=== PATIENT | female | born 1990 | race Caucasian/White ===

== ENCOUNTER → 2017-06-05 | Outpatient (CLI) | payer OTHER | LOC: OD 16:52 | PROVIDERS: ATTEND Obstetrics & Gynecology | DX: O02.1 Missed abortion (principal) | CPT/HCPCS: 36415; 84702 ==

== ENCOUNTER 2017-06-09 10:38 | Emergency (ER) | payer OTHER ==
[2017-06-09 10:43] VITALS: BP 106/61
--- NOTE | 2017-06-09 11:03 | ER Document Report ---
ED General - General Chief Complaint: Hand Pain Stated Complaint: RIGHT HAND INJURY Time Seen by Provider: 06/09/17 11:02 Mode of Arrival: Ambulatory Information source: Patient Notes: 27-year-old female presents with complaints of right hand pain fifth digit after punching a door at 430 this morning. TRAVEL OUTSIDE OF THE [place] IN LAST 30 DAYS: No - HPI Onset: This morning Onset/Duration: Sudden Quality of pain: Achy Severity: Mild Pain Level: 1 Associated symptoms: Body/muscle aches Exacerbated by: Movement Relieved by: Denies Similar symptoms previously: No Recently seen / treated by doctor: No - Related Data Allergies/Adverse Reactions: No Known Allergies Allergy (Unverified 06/09/17 10:42) Past Medical History - Social History Smoking Status: Never Smoker Cigarette use (# per day): No Chew tobacco use (# tins/day): No Smoking Education Provided: No Frequency of alcohol use: None Drug Abuse: None Family History: Reviewed & Not Pertinent Renal/ Medical History: Denies: Hx Peritoneal Dialysis Past Surgical History: Reports: Hx Breast Surgery - Lumpectomy right breast - Immunizations Hx Diphtheria, Pertussis, Tetanus Vaccination: Yes Review of Systems - Review of Systems Notes: REVIEW OF SYSTEMS: CONSTITUTIONAL : Denies fever, chills, or sweats. Denies recent illness. EENT: Denies eye, ear, throat, or mouth pain or symptoms. Denies nasal or sinus congestion or discharge. Denies throat, tongue, or mouth swelling or difficulty swallowing. CARDIOVASCULAR: Denies chest pain. Denies palpitations or racing or irregular heart beat. Denies ankle edema. RESPIRATORY: Denies cough, cold, or chest congestion. Denies shortness of breath, difficulty breathing, or wheezing. GASTROINTESTINAL: Denies abdominal pain or distention. Denies nausea, vomiting , or diarrhea. Denies blood in vomitus, stools, or per rectum. Denies black, tarry stools. Denies constipation. GENITOURINARY: Denies difficulty urinating, painful urination, burning, frequency, blood in urine, or discharge. FEMALE GENITOURINARY: Denies vaginal bleeding, heavy or abnormal periods, irregular periods. Denies vaginal discharge or odor. MUSCULOSKELETAL: Admits to hand pain SKIN: Denies rash, lesions or sores. HEMATOLOGIC : Denies easy bruising or bleeding. LYMPHATIC: Denies swollen, enlarged glands. NEUROLOGICAL: Denies confusion or altered mental status. Denies passing out or loss of consciousness. Denies dizziness or lightheadedness. Denies headache. Denies weakness or paralysis or loss of use of either side. Denies problems with gait or speech. Denies sensory loss, numbness, or tingling. Denies seizures. PSYCHIATRIC: Denies anxiety or stress. Denies depression, suicidal ideation, or homicidal ideation. ALL OTHER SYSTEMS REVIEWED AND NEGATIVE. PHYSICAL EXAMINATION: GENERAL: Well-appearing, well-nourished and in no acute distress. HEAD: Atraumatic, normocephalic. EYES: Pupils equal round and reactive to light, extraocular movements intact, conjunctiva are normal. ENT: Nares patent, oropharynx clear without exudates. Moist mucous membranes. NECK: Normal range of motion, supple without lymphadenopathy LUNGS: Breath sounds clear to auscultation bilaterally and equal. No wheezes rales or rhonchi. HEART: Regular rate and rhythm without murmurs ABDOMEN: Soft, nontender, nondistended abdomen. No guarding, no rebound. No masses appreciated. Female : deferred Musculoskeletal: Ecchymosis tenderness at the base of the fifth metacarpal NEUROLOGICAL: Cranial nerves grossly intact. Normal speech, normal gait. Normal sensory, motor exams PSYCH: Normal mood, normal affect. SKIN: Warm, Dry, normal turgor, no rashes or lesions noted. Dictation was performed using [employer] voice recognition software Physical Exam - Vital signs Vitals: Temp Pulse Resp BP Pulse Ox 97.9 F 95 16 106/61 99 06/09/17 10:41 06/09/17 10:41 06/09/17 10:41 06/09/17 10:41 06/09/17 10:41 Course - Re-evaluation Re-evalutation: 06/09/17 11:03 Patient taken immediately to x-ray 06/09/17 11:48 X-ray was reviewed by myself and I spoke with the radiologist, we do not believe the patient has a fracture at this time, the initial image was a bit concerning but is difficult to see in the oblique view. I will splint her nonetheless for comfort at this time and have her follow-up with orthopedic physician After performing a Medical Screening Examination, I estimate there is LOW risk for INTRACRANIAL HEMORRHAGE, UNSTABLE SPINE FRACTURE, CENTRAL CORD SYNDROME, CAUDA EQUINA, THORACIC AORTIC DISSECTION, PNEUMOTHORAX, PERFORATED BOWEL, RUPTURED ABDOMINAL AORTIC ANEURYSM, ACUTE TENDON RUPTURE, COMPARTMENT SYNDROME, or OPEN FRACTURE, thus I consider the discharge disposition reasonable. Also, there is no evidence or peritonitis, sepsis, or toxicity. I have reevaluated this patient multiple times and no significant life threatening changes are noted. The patient and I have discussed the diagnosis and risks, and we agree with discharging home to follow-up with their primary doctor with the understanding that symptoms and presentations can change. We also discussed returning to the Emergency Department immediately if new or worsening symptoms occur. We have discussed the symptoms which are most concerning (e.g., bloody stool, fever, changing or worsening pain, vomiting) that necessitate immediate return. - Vital Signs Vital signs: Temp Pulse Resp BP Pulse Ox 97.9 F 95 16 106/61 99 06/09/17 10:41 06/09/17 10:41 06/09/17 10:41 06/09/17 10:41 06/09/17 10:41 - Diagnostic Test Radiology reviewed: Image reviewed, Reports reviewed - no obvious fracture Procedures - Immobilization Right Hand Time completed: 15:11 Pre-Proc Neuro Vasc Exam: Normal Immobilizer type: Ulnar Performed by: PCT Post-Proc Neuro Vasc Exam: Normal Alignment checked and good: Yes Discharge - Discharge Clinical Impression: Hand injury Qualifiers: Encounter type: initial encounter Laterality: right Qualified Code(s): S69.91XA - Unspecified injury of right wrist, hand and finger(s), initial encounter Condition: Stable Disposition: HOME, SELF-CARE Instructions: Fractured Fifth Metacarpal ([facility]) Prescriptions: Hydrocodone/Acetaminophen [[place] 5-325 mg Tablet] 1 tab PO Q6 #10 tablet Referrals: NIKHIL JACKSON DO [ACTIVE STAFF] - Follow up in 1 week
[2017-06-09] MEDS ORDERED: HYDROCODONE/ACETAMINOPHEN 5-325 MG TABLET PO ONE (11:21)
--- NOTE | 2017-06-09 11:38 | RADIOLOGY REPORT (SQ) ---
EXAM DESCRIPTION: HAND RIGHT 3 VIEWS COMPLETED DATE/TIME: 06/09/2017 11:24 am REASON FOR STUDY: pain COMPARISON: None. EXAM PARAMETERS: NUMBER OF VIEWS: Three views. TECHNIQUE: AP, lateral and oblique radiographic images acquired of the right hand. LIMITATIONS: None. FINDINGS: MINERALIZATION: Normal. BONES: No acute fracture or dislocation. No worrisome bone lesions. JOINTS: No effusions. SOFT TISSUES: No soft tissue swelling. No foreign body. OTHER: No other significant finding. IMPRESSION: NEGATIVE STUDY OF THE RIGHT HAND. NO RADIOGRAPHIC EVIDENCE OF ACUTE INJURY. TECHNICAL DOCUMENTATION: JOB ID: [id number] [employer]- All Rights Reserved
== END 2017-06-09 12:12 | disposition home or self-care (01) ==
LOC: ER 10:38
PROC: 2W3CX1Z Immobilization of Right Lower Arm using Splint (ICD-10-PCS; principal; 2017-06-09)
DX: S69.91XA Unspecified injury of right wrist, hand and finger(s), initial encounter (principal); M79.641 Pain in right hand; X58.XXXA Exposure to other specified factors, initial encounter
CPT/HCPCS: 99283

== ENCOUNTER 2017-06-21 17:02 | Emergency (ER) | payer OTHER ==
[2017-06-21] MEDS ORDERED: NORMAL SALINE 1000 ML 1,000 ML IV PRN ×2 (17:19→19:03)
[2017-06-21] MEDS ORDERED: MORPHINE SULFATE 10 MG/ML INJ IV ONE (17:28)
--- NOTE | 2017-06-21 17:29 | ER Document Report ---
ED GI/ - General Chief Complaint: Vag Bleeding, +preg <12wks Stated Complaint: VAGINAL BLEEDING Time Seen by Provider: 06/21/17 17:18 Mode of Arrival: Ambulatory Information source: Patient TRAVEL OUTSIDE OF THE [place] IN LAST 30 DAYS: No - HPI Patient complains to provider of: Pelvic pain, , Vaginal bleeding - With tissue passage Onset: Just prior to arrival Timing/Duration: Gradual Quality of pain: Achy, Cramping Severity at maximum: Moderate Severity in ED: Moderate Pain Level: 3 Location: Pelvis Vaginal bleeding (Compared to normal period): Heavier, Passing clots, Passing tissue Menstrual period history: Associated symptoms: Lightheaded Exacerbated by: Denies Relieved by: Denies Similar symptoms previously: Yes Recently seen / treated by doctor: Yes Notes: 06/21/17 17:28 Patient is a 27-year-old female who is G3 with 2 previous miscarriages, one requiring a D&C, who presents to the emergency room today complaining of vaginal bleeding with passage of large tissue mass consistent with likely miscarriage, she reports that she was recently seen by [facility] [employer], has had 3 separate ultrasounds during the course of this and was told on her most recent one 2 weeks ago that there was no heartbeat and she would likely have a miscarriage, she reports that over the past week she has developed an increased cramping with bleeding, also lightheadedness causing her to nearly passed out twice yesterday, today she passed a large tissue mass resembling a 6-8 week fetus - Related Data Allergies/Adverse Reactions: No Known Allergies Allergy (Unverified 06/09/17 10:42) Past Medical History - General Information source: Patient - Social History Smoking Status: Never Smoker Family History: Reviewed & Not Pertinent Patient has suicidal ideation: No Patient has homicidal ideation: No Renal/ Medical History: Denies: Hx Peritoneal Dialysis Past Surgical History: Reports: Hx Breast Surgery - Lumpectomy right breast - Immunizations Hx Diphtheria, Pertussis, Tetanus Vaccination: Yes Review of Systems - Review of Systems Constitutional: No symptoms reported EENT: No symptoms reported Cardiovascular: No symptoms reported Respiratory: No symptoms reported Gastrointestinal: No symptoms reported Genitourinary: No symptoms reported Female Genitourinary: See HPI Musculoskeletal: No symptoms reported Skin: No symptoms reported Hematologic/Lymphatic: No symptoms reported Neurological/Psychological: No symptoms reported -: Yes All other systems reviewed and negative Physical Exam - Vital signs Vitals: Temp Pulse Resp BP Pulse Ox 98.4 F 113 H 20 115/62 100 06/21/17 17:10 06/21/17 17:10 06/21/17 17:10 06/21/17 17:10 06/21/17 17:10 Interpretation: Normal - General General appearance: Appears well, Alert - HEENT Head: Normocephalic, Atraumatic Eyes: Normal Pupils: PERRL - Respiratory Respiratory status: No respiratory distress Chest status: Nontender Breath sounds: Normal Chest palpation: Normal - Cardiovascular Rhythm: Regular Heart sounds: Normal auscultation Murmur: No - Abdominal Inspection: Normal Distension: No distension Bowel sounds: Normal Tenderness: Nontender Organomegaly: No organomegaly - Back Back: Normal, Nontender - Extremities General upper extremity: Normal inspection, Nontender, Normal color, Normal ROM , Normal temperature General lower extremity: Normal inspection, Nontender, Normal color, Normal ROM , Normal temperature, Normal weight bearing. No: Gil's sign - Neurological Neuro grossly intact: Yes Cognition: Normal Orientation: AAOx4 [place] Coma Scale Eye Opening: Spontaneous [place] Coma Scale Verbal: Oriented [place] Coma Scale Motor: Obeys Commands [place] Coma Scale Total: 15 Speech: Normal Motor strength normal: LUE, RUE, LLE, RLE Sensory: Normal - Psychological Associated symptoms: Normal affect, Normal mood - Skin Skin Temperature: Warm Skin Moisture: Dry Skin Color: Normal Course - Re-evaluation Re-evalutation: 06/21/17 19:11 Patient was discussed with on-call [facility] [employer], Dr. Henry, I discussed patient's physical exam findings, lab findings and ultrasound findings, she recommends patient be discharged home with instructions that heavy bleeding will likely occur for the next few days with some cramping, recommended I put patient on doxycycline prophylactically and advised her to follow-up in the [facility] office either tomorrow or Sunday, this plan was discussed with patient who acknowledges understanding and agreement 06/21/17 19:12 - Vital Signs Vital signs: Temp Pulse Resp BP Pulse Ox 98.4 F 113 H 20 115/62 100 06/21/17 17:10 06/21/17 17:10 06/21/17 17:10 06/21/17 17:10 06/21/17 17:10 - Laboratory Result Diagrams: 06/21/17 17:38 06/21/17 17:38 Laboratory results interpreted by me: 06/21/17 06/21/17 17:38 17:38 WBC 11.5 H RBC 3.39 L Hgb 10.6 L Hct 29.9 L Beta HCG, Quant 3093.60 H - Diagnostic Test Radiology reviewed: Image reviewed, Reports reviewed Discharge - Discharge Clinical Impression: Complete miscarriage Condition: Stable Disposition: HOME, SELF-CARE Instructions: Miscarriage ([facility]), Prophylactic Antibiotic ([facility]) Additional Instructions: Follow-up with your [facility] [employer] in the next 1-2 days. Return to the emergency room immediately if symptoms worsen or any additional concerns. Prescriptions: Doxycycline Hyclate 100 mg PO BID #14 tablet Hydrocodone/Acetaminophen [Hydrocodon-Acetaminophen 5-325] 1 each PO Q6 #20 tablet
[2017-06-21 17:53] LABS: ABSOLUTE BASOPHILS # (AUTO) 0.1 10^3/uL (0.0-0.2); ABSOLUTE EOSINOPHILS # (AUTO) 0.2 10^3/uL (0.0-0.6); ABSOLUTE LYMPHOCYTES (AUTO) 4.4 10^3/uL (0.5-4.7); ABSOLUTE MONOCYTES (AUTO) 0.8 10^3/uL (0.1-1.4); BASOPHILS % (AUTO) 0.6 % (0-2); HEMATOCRIT 29.9 % (36.0-47.0); HEMOGLOBIN 10.6 g/dL (12.0-15.5); HGB HCT DIFFERENCE 1.9; LYMPHOCYTES % (AUTO) 38.4 % (13-45); MEAN CORPUSCULAR HEMOGLOBIN 31.3 pg (27.0-33.4); MEAN CORPUSCULAR HGB CONC 35.4 g/dL (32.0-36.0); MEAN CORPUSCULAR VOLUME 88 fl (80-97); MONOCYTES % (AUTO) 6.6 % (3-13); RED BLOOD COUNT 3.39 10^6/uL (3.72-5.28); RED CELL DISTRIBUTION WIDTH 12.9 % (11.5-14.0); SEGMENTED NEUTROPHILS % (AUTO) 52.4 % (42-78); WHITE BLOOD COUNT 11.5 10^3/uL (4.0-10.5)
[2017-06-21] MEDS ORDERED: ONDANSETRON HCL INJ/PF 4 MG/2 ML SDV IV ONE (17:56)
[2017-06-21 18:14] LABS: ALANINE AMINOTRANSFERASE 29 U/L (9-52); ALBUMIN 4.3 g/dL (3.5-5.0); ALKALINE PHOSPHATASE 88 U/L (38-126); ANION GAP 13 (5-19); ASPARTATE AMINO TRANSFERASE 18 U/L (14-36); BILIRUBIN,DIRECT 0.3 mg/dL (0.0-0.4); BILIRUBIN,TOTAL 0.3 mg/dL (0.2-1.3); BLOOD UREA NITROGEN 7 mg/dL (7-20); CALCIUM 9.3 mg/dL (8.4-10.2); CARBON DIOXIDE 24 mmol/L (22-30); CHLORIDE 106 mmol/L (98-107); CREATININE RESULT 0.66 mg/dL (0.52-1.25); GLUCOSE 95 mg/dL (75-110); POTASSIUM 3.8 mmol/L (3.6-5.0); SODIUM 142.7 mmol/L (137-145); TOTAL PROTEIN 7.6 g/dL (6.3-8.2)
[2017-06-21 18:28] LABS: APPEARANCE,URINE CLEAR; BILIRUBIN,URINE NEGATIVE (NEGATIVE); GLUCOSE, URINE NEGATIVE (NEGATIVE); KETONES,URINE NEGATIVE (NEGATIVE); LEUKOCYTE ESTERASE,URINE NEGATIVE (NEGATIVE); NITRITE,URINE NEGATIVE (NEGATIVE); PROTEIN,URINE NEGATIVE (NEGATIVE); URINE SPECIFIC GRAVITY 1.008; UROBILINOGEN,URINE NEGATIVE mg/dL (<2.0)
--- NOTE | 2017-06-21 18:58 | RADIOLOGY REPORT (SQ) ---
EXAM DESCRIPTION: U/S OB TRANSVAG W/DOPPLER COMPLETED DATE/TIME: 06/21/2017 6:43 pm REASON FOR STUDY: vaginal bldg, tissue passage, COMPARISON: None. TECHNIQUE: Transvaginal static and realtime grayscale images acquired of the pelvis. Additional sandy cted spectral and color Doppler images recorded. All images stored on PACs. BHC,093. LIMITATIONS: None. FINDINGS: UTERUS: No visualized intrauterine . Heterogenous tissue in the endometrial cavi ty extending to the cervical canal. RIGHT ADNEXA: Normal ovary with normal vascular flow. No adnexal free fluid. No adnexal masses. LEFT ADNEXA: Normal ovary with normal vascular flow. No adnexal free fluid. No adnexal masses. FREE FLUID: None. OTHER: No other significant finding. IMPRESSION: NO VISUALIZED INTRA- OR EXTRAUTERINE . THERE IS A HETEROGENOUS MATERIAL IN THE ENDOMETRIAL CAVITY AND CERVICAL CANAL CONSISTENT WITH ABORTIO N IN PROGRESS. TECHNICAL DOCUMENTATION: JOB ID: [id number] [employer]- All Rights Reserved
[2017-06-21] MEDS ORDERED: METOCLOPRAMIDE HCL ORAL SOLN 10 MG/10 ML UDCUP PO ONE (19:03)
[2017-06-21] MEDS ORDERED: ONDANSETRON ODT 4 MG TAB (6 TAB/DSPK) PO PRN (19:18)
[2017-06-21 21:00] VITALS: BP 96/54
== END 2017-06-21 20:54 | disposition home or self-care (01) ==
LOC: ER 17:02
DX: O03.9 Complete or unspecified spontaneous abortion without complication (principal); R42 Dizziness and giddiness
CPT/HCPCS: 99284; 96361; 96374; 96375; 86900; 86901; 36415; 84702; 85025; 80053; 81001; 88305 ×2; 76817; 93976; J2270; J2405; J7030

== ENCOUNTER 2017-06-29 07:49 | Day surgery (SDC) | payer OTHER ==
[2017-06-29] MEDS ORDERED: DOXYCYCLINE HYCLATE 100 MG in DEXTROSE 5%-WATER 250 ML IV PRN (08:01)
[2017-06-29] MEDS ORDERED: KETOROLAC TROMETHAMINE 60 MG/2 ML SDV ONE (08:15)
[2017-06-29] MEDS ORDERED: ONDANSETRON HCL INJ/PF 4 MG/2 ML SDV ONE (08:15)
[2017-06-29] MEDS ORDERED: LIDOCAINE 2% INJ-PF (20 MG/ML) 10 ML AMPUL ONE (08:15)
[2017-06-29] MEDS ORDERED: DEXAMETHASONE SOD PHOSPHATE INJ 4 MG/1 ML VIAL ONE (08:15)
[2017-06-29 08:26] LABS: HEMATOCRIT 28.5 % (36.0-47.0); HGB HCT DIFFERENCE 1.5; MEAN CORPUSCULAR HEMOGLOBIN 31.7 pg (27.0-33.4); MEAN CORPUSCULAR HGB CONC 35.1 g/dL (32.0-36.0); MEAN CORPUSCULAR VOLUME 91 fl (80-97); RED BLOOD COUNT 3.15 10^6/uL (3.72-5.28); RED CELL DISTRIBUTION WIDTH 13.5 % (11.5-14.0)
[2017-06-29] MEDS ORDERED: METHYLERGONOVINE MALEATE INJ/PF 0.2 MG/1 ML AMPULE ONE ×2 (08:32→09:04)
[2017-06-29 08:44] LABS: APPEARANCE,URINE CLEAR; BILIRUBIN,URINE NEGATIVE (NEGATIVE); GLUCOSE, URINE NEGATIVE (NEGATIVE); KETONES,URINE NEGATIVE (NEGATIVE); LEUKOCYTE ESTERASE,URINE NEGATIVE (NEGATIVE); NITRITE,URINE NEGATIVE (NEGATIVE); PROTEIN,URINE NEGATIVE (NEGATIVE); URINE SPECIFIC GRAVITY 1.006; UROBILINOGEN,URINE NEGATIVE mg/dL (<2.0)
[2017-06-29] MEDS ORDERED: LIDOCAINE 1%/EPINEPHRINE INJ 20 ML VIAL ONE (09:04)
[2017-06-29] MEDS ORDERED: MIDAZOLAM 2 MG/2 ML INJ ONE (09:13)
[2017-06-29] MEDS ORDERED: FENTANYL CITRATE INJ/PF 100 MCG/2 ML AMPUL ONE ×2 (09:13→10:44)
[2017-06-29] MEDS ORDERED: PROPOFOL INJ 200 MG/20 ML VIAL IV ONE (09:14)
[2017-06-29] MEDS ORDERED: ACETAMINOPHEN 100 ML IV ONE (09:14)
[2017-06-29] MEDS ORDERED: MISOPROSTOL 0.2 MG TABLET ONE (09:37)
[2017-06-29] MEDS ORDERED: DIPHENHYDRAMINE HCL 50 MG/ML VIAL IV PRN (10:27)
[2017-06-29] MEDS ORDERED: FENTANYL CITRATE INJ/PF 100 MCG/2 ML AMPUL IV PRN ×3 (10:27)
[2017-06-29] MEDS ORDERED: MORPHINE SULFATE 10 MG/ML INJ IV PRN (10:27)
[2017-06-29] MEDS ORDERED: PROMETHAZINE HCL INJ 25 MG/1 ML VIAL IV PRN ×2 (10:27)
[2017-06-29] MEDS ORDERED: MEPERIDINE HCL/PF INJ 25 MG/1 ML DISP.SYRIN IV PRN (10:27)
[2017-06-29] MEDS ORDERED: OXYCODONE-ACETAMINOPHEN 5-325 MG TABLET PO PRN ×4 (10:27→10:48)
[2017-06-29] MEDS ORDERED: MEPERIDINE HCL/PF INJ 25 MG/1 ML DISP.SYRIN ONE (10:32)
[2017-06-29] MEDS ORDERED: HYDROMORPHONE HCL INJ/PF 2 MG/ML AMPULE IV PRN (10:45)
[2017-06-29] MEDS ORDERED: RINGERS SOLUTION,LACTATED 1,000 ML IV PRN (10:46)
[2017-06-29] MEDS ORDERED: IBUPROFEN 800 MG TABLET PO PRN (10:47)
[2017-07-02 05:54] VITALS: BP 111/74
--- NOTE | 2017-07-17 07:09 | Operative Report ---
Operative Report DATE OF SURGERY: 06/29/17 Operative Report: EUA, Paracervical Block, D&C PREOPERATIVE DIAGNOSIS: Incomplete AB POSTOPERATIVE DIAGNOSIS: ARDEN OPERATION: EUA, Paracervical Block, Suction D&C SURGEON: LE ABDULLAHI ANESTHESIA: GA TISSUE REMOVED OR ALTERED: products of conception COMPLICATIONS: None ESTIMATED BLOOD LOSS: less than 10ml INTRAOPERATIVE FINDINGS: small 8wks AV uterus, moderate products of conception PROCEDURE: Anesthesia: [Lamar Guzman MD, Rolando Guthrie CRNA] Anesthesia: GA IVF: [1000ml] UOP: [400ml] Indications: [27yo with retained products of conception on ultrasound after spontaneous miscarriage last week. The risks, benefits, alternatives were reviewed with the patient and she desires to proceed with planned procedure.] Procedure: The patient was taken to the Operating Room where general anesthesia was obtained without difficulty. She was prepped and draped in the normal sterile fashion in the dorsal lithotomy position. Exam under anesthesia was performed and noted above. A speculum was placed in the vagina. The anterior cervix was grasped with a single-tooth tenaculum and the uterus sounded to [9cm ] after paracervical block was performed with 8 mL of 1% lidocaine with epinephrine. The cervix was noted to be closed at the beginning of the procedure. Sequential dilators were then used to dilate the cervix to accommodate the the 8 mm suction curet curved. The 8 mm curved suction curet was gently advanced in the usual fashion and good return of tissue. The suction device was then activated and the curet rotated to clear the uterus of the products of conception. A sharp curettage was then performed. The suction device was then gently reintroduced and activated and the curet rotated to clear the uterus of conception which was loosened with recent sharp curettage. The sharp curettage was then performed again until a gritty texture was noted and the cavity was felt to be empty of further tissue. At this time there was minimal bleeding noted from the cervix. All instruments were removed from the patient's cervix and vagina. Silver nitrate was applied to the tenaculum site for hemostasis. Sponge lap needle and instrument counts are correct 2. Doxycycline 100 mg IV was given perioperatively. The patient tolerated the procedure well and was taken to the recovery area awake and in stable condition. The patient was discharged home with pain medications as well as by mouth Methergine.
== END 2017-06-29 13:00 | disposition home or self-care (01) ==
LOC: OROUT 07:49
PROVIDERS: ATTEND Student in an Organized Health Care Education/Training Program
PROC: 10D17Z9 Manual Extraction of Products of Conception, Retained, Via Natural or Artificial Opening (ICD-10-PCS; principal; 2017-06-29 09:45)
DX: O02.1 Missed abortion (principal); F17.210 Nicotine dependence, cigarettes, uncomplicated
CPT/HCPCS: 36415; 85027; 81001; 88305 ×2; 59820; J2250; J1100; J3490 ×3; J1885; J3010; J2175; J1170; J2405; J7060; J2704; J0131; 1965; J2210

== ENCOUNTER 2017-08-21 22:46 | Emergency (ER) | payer OTHER ==
--- NOTE | 2017-08-21 23:58 | ER Document Report ---
ED Hand/Wrist Injury - General Chief Complaint: Finger Injury Stated Complaint: RIGHT HAND INJURY Time Seen by Provider: 08/21/17 23:57 Mode of Arrival: Ambulatory Information source: Patient Notes: Patient is a 27-year-old female comes emergency room complaining of right hand pain. Patient has a history of a fracture several months ago of the right distal metacarpal on the fifth digit. She sees orthopedic and it has been getting better. She states that today she was walking at all with leash dog bolted pulled on her hand and the leash patient fell forward and she landed on her right hand with under her chest causing to be sandwich between her chest and the ground. Patient states that is very painful and is afraid she fractured it again. TRAVEL OUTSIDE OF THE [place] IN LAST 30 DAYS: No - HPI Patient complains to provider of: Hand pain Injury to: Hand, Small finger Onset: This afternoon Where: Home Timing: Constant Quality of pain: Sharp, Stabbing Severity: Moderate Pain Level: 3 Context: Blow, Crush, Swelling - Related Data Allergies/Adverse Reactions: No Known Allergies Allergy (Unverified 06/09/17 10:42) Past Medical History - General Information source: Patient - Social History Smoking Status: Never Smoker Cigarette use (# per day): No Chew tobacco use (# tins/day): No Smoking Education Provided: No Frequency of alcohol use: Occasional Drug Abuse: None Family History: Reviewed & Not Pertinent Patient has suicidal ideation: No Patient has homicidal ideation: No - Past Medical History Cardiac Medical History: Denies: Hx Coronary Artery Disease, Hx Heart Attack, Hx Hypertension Pulmonary Medical History: Denies: Hx Asthma, Hx Bronchitis, Hx COPD, Hx Pneumonia Neurological Medical History: Denies: Hx Cerebrovascular Accident, Hx Seizures Renal/ Medical History: Denies: Hx Peritoneal Dialysis Musculoskeltal Medical History: Denies Hx Arthritis Past Surgical History: Reports: Hx Breast Surgery - Lumpectomy right breast - Immunizations Hx Diphtheria, Pertussis, Tetanus Vaccination: - UNKNOWN Review of Systems - Review of Systems Constitutional: No symptoms reported EENT: No symptoms reported Cardiovascular: No symptoms reported Respiratory: No symptoms reported Gastrointestinal: No symptoms reported Genitourinary: No symptoms reported Female Genitourinary: No symptoms reported Musculoskeletal: See HPI, Joint pain, Joint swelling. denies: No symptoms reported, Back pain, Gout, Muscle pain, Muscle stiffness, Neck pain, Deformity, Leg swelling, Ankle swelling, Other Skin: No symptoms reported Hematologic/Lymphatic: No symptoms reported Neurological/Psychological: No symptoms reported -: Yes All other systems reviewed and negative Physical Exam - Vital signs Vitals: Temp Pulse Resp BP Pulse Ox 98.4 F 89 18 106/59 L 100 08/21/17 22:59 08/21/17 22:59 08/21/17 22:59 08/21/17 22:59 08/21/17 22:59 Interpretation: Normal - General General appearance: Alert, Other - Uncomfortable appearing - HEENT Head: Normocephalic, Atraumatic - Respiratory Respiratory status: No respiratory distress Chest status: Nontender Breath sounds: Normal. No: Decreased air movement, Nonproductive cough, Productive cough, Rales, Rhonchi, Stridor, Wheezing, Other - Cardiovascular Rhythm: Regular Heart sounds: Normal auscultation Murmur: No - Extremities General upper extremity: Tender. No: Normal inspection, Nontender, Edema, Normal color, Normal ROM, Normal strength, Normal temperature, Other General lower extremity: Normal inspection, Normal ROM Hand: Tender, Swelling, Other - Examination of patient's right hand shows there to be slight amount of swelling to the right dorsum of the little finger metacarpal area. There is no sign of abrasion or. No: Normal, Nontender, Abrasion, Deformity, Dislocation, Ecchymosis, Instability, Laceration, Nail injury, No evidence of human bite, No evidence of FB, Tendon deficit Hip: Normal - discoloration. Patient has decreased range of motion with flexion and extension of the little finger on the right hand she is good cap refill in the nail bed of the finger she has good pulses of the distal ulna and radius area. Patient has decreased strength against resistance in all planes with the little finger. Inspection of the outside of the hand does not show any abrasions or contusions that are noticeable. Moderate amount of tenderness at the distal right fifth metacarpal. Course - Vital Signs Vital signs: Temp Pulse Resp BP Pulse Ox 98.4 F 89 18 106/59 L 100 08/21/17 22:59 08/21/17 22:59 08/21/17 22:59 08/21/17 22:59 08/21/17 22:59 - Diagnostic Test Radiology reviewed: Reports reviewed - X-ray of the right hand shows no acute findings. Is evidence of an old fracture healed. - Transfer of Care Notes: 08/22/17 01:58 I have informed patient of the findings on the x-ray and have given her a copy of the report. There is no fracture there and therefore no real reason the splint on RN however patient does have a splint given to her by orthopedist but states that it is too painful to place on. We will place her in a Ortho-Glass cock-up splint just to stop the hand from being mobile. And she will follow-up with orthopedics sometime this week. She will continue to ice it down. We will try diclofenac as a anti-inflammatory to see if that will relieve her discomfort. Procedures - Immobilization Right Hand 5th digit Immobilizer type: Sugar tong, Other - A boxer splint is what we will use with Ortho-Glass. Performed by: PCT Post-Proc Neuro Vasc Exam: Normal Alignment checked and good: Yes Discharge - Discharge Clinical Impression: Strain of right little finger Contusion of hand, right Qualifiers: Encounter type: initial encounter Qualified Code(s): S60.221A - Contusion of right hand, initial encounter Condition: Good Disposition: HOME, SELF-CARE Instructions: Contusion ([facility]), Tendon Strain ([facility]) Additional Instructions: Use the splint for the next 2-3 days. Highly recommend since you are seen an orthopedist already follow-up with him sometime this week. Ice to the area 3 times a day. We will try you on diclofenac which is anti-inflammatory for the discomfort and pain. She have any concerns or problems return here for a recheck. Prescriptions: Diclofenac Potassium 50 mg PO BID #20 tablet
--- NOTE | 2017-08-22 01:27 | RADIOLOGY REPORT (SQ) ---
EXAM DESCRIPTION: HAND RIGHT 3 VIEWS CLINICAL HISTORY: 27 years, Female, pain COMPARISON: June 19, 2017 TECHNIQUE: Four images. LIMITATIONS: None. 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 Bones, joints, and soft tissues appear otherwise intact. IMPRESSION: No acute findings. 2011 [employer]- All Rights Reserved
[2017-08-22] MEDS ORDERED: KETOROLAC TROMETHAMINE 60 MG/2 ML SDV IM ONE (01:29)
[2017-08-22 02:20] VITALS: BP 106/69
== END 2017-08-22 02:21 | disposition home or self-care (01) ==
LOC: ER 22:46
DX: S66.911A Strain of unspecified muscle, fascia and tendon at wrist and hand level, right hand, initial encounter (principal); W19.XXXA Unspecified fall, initial encounter; Y93.K1 Activity, walking an animal; Y92.009 Unspecified place in unspecified non-institutional (private) residence as the place of occurrence of the external cause
CPT/HCPCS: 99283; 96372; 73130; 29125; J1885

== ENCOUNTER 2018-08-01 19:00 | Outpatient (CLI) | payer OTHER ==
[2018-08-01 20:33] LABS: APPEARANCE,URINE CLEAR; BILIRUBIN,URINE NEGATIVE (NEGATIVE); COLOR,URINE STRAW; GLUCOSE, URINE NEGATIVE (NEGATIVE); KETONES,URINE NEGATIVE (NEGATIVE); LEUKOCYTE ESTERASE,URINE NEGATIVE (NEGATIVE); NITRITE,URINE NEGATIVE (NEGATIVE); PROTEIN,URINE 100 mg/dL (NEGATIVE); URINE SPECIFIC GRAVITY 1.006; UROBILINOGEN,URINE NEGATIVE mg/dL (<2.0)
--- NOTE | 2018-08-01 20:39 | RADIOLOGY REPORT (SQ) ---
EXAM DESCRIPTION: U/S OB LIMITED COMPLETED DATE/TIME: 08/01/2018 8:24 pm REASON FOR STUDY: 33+6 rule out abruption COMPARISON: None. TECHNIQUE: Limited transabdominal grayscale ultrasound for evaluation of specific requested obstetri liliana parameters. LIMITATIONS: None. FINDINGS: CERVICAL LENGTH: 4.2 cm Closed. . FHR: 153 beats per minute. PRESENTATION: Cephalic. PLACENTA: Fundal. No abruption. ANATOMY: Not assessed OTHER: No other significant findings. IMPRESSION: LIMITED OBSTETRICAL ULTRASOUND WITH MEASURED PARAMETERS DELINEATED ABOVE. Trimester of : Third trimester - 28 weeks to delivery. TECHNICAL DOCUMENTATION: JOB ID: [id number] [employer]- All Rights Reserved Reading location - IP/workstation name: [email or web address]
[2018-08-01 20:53] LABS: INTERNATIONAL RATION (INR) 0.97; PROTHROMBIN TIME 13.3 SEC (11.4-15.4)
[2018-08-01 20:54] LABS: FIBRINOGEN 463 mg/dL (209-497); PARTIAL THROMBOPLASTIN TIME 25.1 SEC (23.5-35.8)
[2018-08-01] MEDS ORDERED: NALBUPHINE HCL INJ 10 MG/1 ML AMPULE IM ONE (20:56)
[2018-08-01] MEDS ORDERED: NALBUPHINE HCL INJ 10 MG/1 ML AMPULE ONE (21:00)
[2018-08-01 21:05] LABS: URINE AMPHETAMINES SCREEN NEGATIVE; URINE BARBITURATES SCREEN NEGATIVE; URINE BENZODIAZEPINES SCREEN NEGATIVE; URINE COCAINE SCREEN NEGATIVE; URINE MARIJUANA (THC) SCREEN NEGATIVE; URINE METHADONE SCREEN NEGATIVE; URINE PHENCYCLIDINE SCREEN NEGATIVE
--- NOTE | 2018-08-01 23:16 | Non Stress Test Report ---
Non Stress Test Datetime Report Generated by CPN: 08/01/2018 23:16 DEMOGRAPHIC Test Number: 1 INDICATION Indication for Study: Ordered by Provider MONITORING Monitor Explained: Monitor Explained; Test Explained; Patient Verbalized Understanding Time off Monitor: 08/01/2018 23:04 NST INTERVENTIONS NST Interventions: PO Hydration; IV Fluids; Reposition Patient Physician Notified NST: Dr. Younger BABY A: [id number] BABY A Movement : Present FHR Baseline : 130 Accelerations : 15X15 Variability : Moderate 6-25bpm NST Review: Meets Criteria for Reactive NST NST Review and Verified By : E. Jilek RN NST Results: Reactive NST REPORT Report Trigger: Send Report
[2018-08-01 23:43] LABS: FETAL RBC COUNT 3
[2018-08-02 03:23] LABS: KB INTERPRETATION POSITIVE (NEGATIVE)
== END 2018-08-01 23:15 | disposition home or self-care (01) ==
LOC: LC 19:00
PROVIDERS: ATTEND Obstetrics & Gynecology
DX: Z34.93 Encounter for supervision of normal pregnancy, unspecified, third trimester (principal)
CPT/HCPCS: 36415; 85384; 85610; 85730; 81001; 85460; 80307; 76815; J2300

== ENCOUNTER 2018-08-02 15:21 | Outpatient (CLI) | payer OTHER ==
--- NOTE | 2018-08-02 20:13 | Non Stress Test Report ---
Non Stress Test Datetime Report Generated by CPN: 08/02/2018 20:13 DEMOGRAPHIC EGA NST: 34.0 INDICATION Indication for Study: Ordered by Provider MONITORING Monitor Explained: Monitor Explained; Test Explained; Patient Verbalized Understanding Time on Monitor: 08/02/2018 15:32 Time off Monitor: 08/02/2018 19:47 NST Duration: 255 NST INTERVENTIONS Physician Notified NST: Carl BABY A: [id number] BABY A Movement : Present Contraction Frequency : irregular FHR Baseline : 140 Accelerations : 15X15 Decelerations : None Variability : Moderate 6-25bpm NST Review: Meets Criteria for Reactive NST NST Review and Verified By : JUAN Lane NST Results: Reactive NST REPORT Report Trigger: Send Report
== END 2018-08-02 19:51 | disposition home or self-care (01) ==
LOC: LC 15:21
PROVIDERS: ATTEND Obstetrics & Gynecology
PROC: 4A1HXCZ Monitoring of Products of Conception, Cardiac Rate, External Approach (ICD-10-PCS; principal; 2018-08-02)
DX: O47.03 False labor before 37 completed weeks of gestation, third trimester (principal); Z3A.34 34 weeks gestation of pregnancy
CPT/HCPCS: 59025

== ENCOUNTER 2018-09-08 11:59 | Inpatient (IN) | payer OTHER ==
[2018-09-08 12:22] LABS: APPEARANCE,URINE CLEAR; BILIRUBIN,URINE NEGATIVE (NEGATIVE); COLOR,URINE STRAW; GLUCOSE, URINE NEGATIVE (NEGATIVE); KETONES,URINE NEGATIVE (NEGATIVE); LEUKOCYTE ESTERASE,URINE NEGATIVE (NEGATIVE); NITRITE,URINE NEGATIVE (NEGATIVE); PROTEIN,URINE 100 mg/dL (NEGATIVE); URINE SPECIFIC GRAVITY 1.005; UROBILINOGEN,URINE NEGATIVE mg/dL (<2.0)
[2018-09-08 12:38] LABS: URINE AMPHETAMINES SCREEN NEGATIVE; URINE BARBITURATES SCREEN NEGATIVE; URINE BENZODIAZEPINES SCREEN NEGATIVE; URINE COCAINE SCREEN NEGATIVE; URINE MARIJUANA (THC) SCREEN NEGATIVE; URINE METHADONE SCREEN NEGATIVE; URINE PHENCYCLIDINE SCREEN NEGATIVE
[2018-09-08 13:49] LABS: UR PRO/CREAT RATIO RESULT 4.3 mg/mg (0.0-0.2); URINE PROTEIN 164.2 mg/dL (<12)
[2018-09-08 14:18] LABS: ALANINE AMINOTRANSFERASE 11 U/L (9-52); ALBUMIN 3.3 g/dL (3.5-5.0); ALKALINE PHOSPHATASE 249 U/L (38-126); ANION GAP 8 (5-19); ASPARTATE AMINO TRANSFERASE 21 U/L (14-36); BILIRUBIN,DIRECT 0.1 mg/dL (0.0-0.4); BILIRUBIN,TOTAL 0.4 mg/dL (0.2-1.3); BLOOD UREA NITROGEN 9 mg/dL (7-20); CALCIUM 9.1 mg/dL (8.4-10.2); CARBON DIOXIDE 21 mmol/L (22-30); CHLORIDE 106 mmol/L (98-107); GLUCOSE 93 mg/dL (75-110); POTASSIUM 4.1 mmol/L (3.6-5.0); SODIUM 134.8 mmol/L (137-145); TOTAL PROTEIN 6.7 g/dL (6.3-8.2); URIC ACID 5.6 mg/dL (2.5-6.2)
[2018-09-08 14:37] LABS: ABSOLUTE EOSINOPHILS # (AUTO) 0.1 10^3/uL (0.0-0.6); ABSOLUTE LYMPHOCYTES (AUTO) 2.1 10^3/uL (0.5-4.7); ABSOLUTE MONOCYTES (AUTO) 0.7 10^3/uL (0.1-1.4); ABSOLUTE NEUT (AUTO) 5.8 10^3/uL (1.7-8.2); BASOPHILS % (AUTO) 0.3 % (0-2); HEMATOCRIT 30.1 % (36.0-47.0); HEMOGLOBIN 9.9 g/dL (12.0-15.5); LYMPHOCYTES % (AUTO) 23.9 % (13-45); MEAN CORPUSCULAR HEMOGLOBIN 26.6 pg (27.0-33.4); MEAN CORPUSCULAR HGB CONC 32.8 g/dL (32.0-36.0); MEAN CORPUSCULAR VOLUME 81 fl (80-97); MONOCYTES % (AUTO) 7.6 % (3-13); PLATELET COUNT 155 10^3/uL (150-450); RED BLOOD COUNT 3.72 10^6/uL (3.72-5.28); SEGMENTED NEUTROPHILS % (AUTO) 67.2 % (42-78); TOTAL CELLS COUNTED % (AUTO) 100 %; WHITE BLOOD COUNT 8.7 10^3/uL (4.0-10.5)
--- NOTE | 2018-09-08 16:34 | Admission Physical ---
Datetime Report Generated by CPN: 09/08/2018 16:34 CURRENT ADMISSION Chief Complaint: Uterine Contractions Indication for Induction: Not Applicable Admit Impression : Term, Intrauterine Admit Plan: Admit to Unit ALLERGIES Medication Allergies: No Medication Allergies: No Known Allergies (08/02/2018) Latex: No Latex Allergies Food Allergies: N/A Environmental Allergies: N/A OBSTETRICAL HISTORY EDC: 09/13/2018 00:00 : 3 Para: 0 Term: 0 : 0 SAB: 2 IAB: 0 Ectopic: 0 Livin Cesareans: 0 VBACs: 0 Multiple Births: 0 Gestational Diabetes: No Rh Sensitization: No Incompetent Cervix: No ALEKS: No Infertility: No ART Treatment: No Uterine Anomaly: No IUGR: No Hx Previous C/S: No Macrosomia: No Hx Loss/Stillborn: No PIH: No Hx : No Placenta Previa/Abruption: No Depression/PP Depression: Yes PTL/PROM: No Post Hemorrhage: No Current Procedures: Ultrasound Obstetrical History Comments: G1 - 2010, SAB, 11 weeks, D_C G2 - 2016, SAB, 6 weeks G3 - Current SEE RECORDS Alcohol: No Marijuana : No Cocaine: No Other Illicit Drugs: No Cigarettes: Former Smoker. 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 Heart Disease: No Hosp/Surgery: Yes Autoimmune Disorder: No Anesthetic Complications: No Kidney Disease: No Abnormal Pap Smear: No Neuro/Epilepsy: No Psychiatric Disorders: Yes Other Medical Diseases: No Hepatitis/Liver Disease: No Significant Family History: No Varicosities/Phlebitis: No Trauma/Violence : No Thyroid Dysfunction: No Medical History Comments: Depression, Anxiety, D_C in 2010, right knee surgery 2004, cyst removed in jaw 2002 and 2003, lump removed from right breast 2015 INFECTIOUS HISTORY Gonorrhea: No Genital Herpes: No Chlamydia: No Tuberculosis: No Syphilis: No Hepatitis: No HIV/AIDS Exposure: No Rash or Viral Illness: No HPV: No PHYSICAL EXAM General: Normal HEENT: Normal Neurologic: Normal Thyroid: Normal Heart: Normal Lungs: Normal Breast: Deferred Back: Normal Abdomen: Normal Genitourinary Exam: Normal Extremities: Normal DTRs: Normal Pelvic Type: Adequate Vital Signs: Reviewed VAGINAL EXAM Dilatation: 1 Effacement: 50 Station: -2 MEMBRANES Pooling: Negative Membranes: Intact FETUS A EGA: 39.2 FHR- Baseline: 140 Decelerations: None Presentation: Vertex Admit Comment: Admit, complete 24 hour urine prot, may be in early labor PLANS FOR LABOR AND DELIVERY Labor and Delivery: None Pain Management: Natural Feeding Preference: Breast Benefit of Breast Feed Discussed: Yes Circumcision: N/A INFORMED CONSENT Signature: with User ID: [email or web address]
[2018-09-08] MEDS ORDERED: ZOLPIDEM TARTRATE 5 MG TABLET PO PRN (16:40)
[2018-09-08] MEDS ORDERED: DIPHENHYDRAMINE HCL 25 MG CAPSULE ONE (19:04)
[2018-09-08] MEDS ORDERED: ACETAMINOPHEN 325 MG TABLET ONE (19:04)
[2018-09-08] MEDS ORDERED: DIPHENHYDRAMINE HCL 25 MG CAPSULE PO ONE (19:05)
[2018-09-08] MEDS ORDERED: ACETAMINOPHEN 325 MG TABLET PO ONE (19:05)
[2018-09-08] MEDS ORDERED: ZOLPIDEM TARTRATE 5 MG TABLET ONE (22:07)
[2018-09-08] MEDS ORDERED: DINOPROSTONE 10 MG VAGINAL INSERT.SR PV ONE (22:47)
[2018-09-08] MEDS ORDERED: DINOPROSTONE 10 MG VAGINAL INSERT.SR ONE (22:48)
[2018-09-08] MEDS ORDERED: MAG HYDROX/AL HYDROX/SIMETH SUSP 30 ML UDCUP ONE (23:56)
[2018-09-09] MEDS: RINGERS SOLUTION,LACTATED 1,000 ML IV PRN ×2 (01:29→14:35)
[2018-09-09] MEDS ORDERED: NALBUPHINE HCL INJ 10 MG/1 ML AMPULE ONE (12:19)
[2018-09-09] MEDS ORDERED: MISOPROSTOL 0.2 MG TABLET ONE (12:19)
[2018-09-09] MEDS ORDERED: OXYTOCIN 10 UNIT/ML VIAL ONE (12:19)
[2018-09-09] MEDS ORDERED: LIDOCAINE 1% INJ-PF (10 MG/ML) 30 ML SDV ONE (12:20)
[2018-09-09] MEDS ORDERED: OXYTOCIN/NORMAL SALINE 20 UNIT/1,000 ML RTUINJ ONE (12:20)
[2018-09-09] MEDS ORDERED: PROMETHAZINE HCL INJ 25 MG/1 ML VIAL ONE (12:21)
--- NOTE | 2018-09-09 12:23 | L&D Progress Notes ---
PROGRESS NOTES Datetime Report Generated by CPN: 09/09/2018 12:22 PROGRESS NOTE Impression Other: IUP @ 40w2d- IOL for presumptive Pre-e Procedures: Artificial ROM; Sterile Vag Exam Plan: Continue Present Management; Induction Informed Consent Obtained: Vaginal Delivery; Induction of Labor; Risks, Benefits and Alternatives Discussed Vital Signs : Reviewed; Within Normal Limits Comment: S: pt. breathing with contractions got up for shower after cervidil was removed and pain has intensified, desires medication for pain control at this time. Does not desire epidural O: cervix as stated A: IUP @40w2d- IOL for GHTN possible pre-e-24hr urine pending, IOL with cervidil last night with presumptive pre-e.-stable, progressing well. SROM @ 1010 this am but forebag present and ruptured on exam-large amount of clear fluid P: continue expectant management at this time, consider pitocin prn, nubain and phenergan IV for pain control with reactive strip VAGINAL EXAM Dilatation: 1 Effacement: 50 Station: -2 Contractions: 3-4 LAST VAGINAL EXAM-NURSING Dilitation: 4-5 Dilitation: 4.5 Dilitation: 1.0 Dilitation: ft Dilitation: 0.0 Effacement: 90 Effacement: 95 Effacement: th Effacement: th Station: -2 Station: -2 Station: -1 Station: -2 Station: high Contractions: some coupling noted Contractions: uterine irritability Contractions: uterine irritability Contractions: uterine irritability Contractions: resting Contractions: Resting tone relaxed Contractions: resting tone relaxed Contractions: palpated restingin tone. Contractions: Resting tone palpated and it is relaxed. MEMBRANES Pooling: Negative Membranes: Ruptured Membranes: Intact Amniotic Fluid Color: Clear FETUS A Monitoring: External US : 40.0 Presentation: Vertex SIGNATURE SIGNATURE: [id number];[id number];13,[id number] SIGNATURE: ,[id number];[id number] SIGNATURE: ,[id number] SIGNATURE: [id number] Assignment: Diane Henry MD Signature: with User ID: Brian : with User ID: Brian
[2018-09-09] MEDS ORDERED: PROMETHAZINE HCL INJ 25 MG/1 ML VIAL IV ONE (12:41)
[2018-09-09] MEDS ORDERED: NALBUPHINE HCL INJ 10 MG/1 ML AMPULE IV ONE (12:41)
[2018-09-09 13:23] LABS: URINE PROTEIN 96.9 mg/dL (<12)
[2018-09-09 13:24] LABS: 24 HOUR URINE PROTEIN RESULT 3198 mg/day (42-225)
[2018-09-09 13:24] LABS: URINE CREATININE 37.1 mg/dL (16-327)
[2018-09-09 13:27] LABS: CREATININE 0.61 mg/dL (0.52-1.25)
[2018-09-09] MEDS ORDERED: OXYTOCIN/NORMAL SALINE 20 UNIT/1,000 ML RTUINJ IV PRN ×2 (14:14→21:08)
[2018-09-09] MEDS ORDERED: FENTANYL/BUPIVACAINE/NS/PF 300 MCG/150 ML RTUINJ EPI ONE (14:36)
[2018-09-09] MEDS ORDERED: BUPIVACAINE HCL 0.25 % INJ/PF (2.5 MG/1 ML) 30 ML VIAL ONE (14:36)
[2018-09-09] MEDS ORDERED: EPHEDRINE SULFATE INJ 50 MG/1 ML AMPULE ONE (14:36)
[2018-09-09] MEDS ORDERED: LIDOCAINE 2% INJ-PF (20 MG/ML) 10 ML AMPUL ONE (17:01)
[2018-09-09] MEDS ORDERED: ACETAMINOPHEN 1,000 MG/100 ML RTUPB IV ONE (19:32)
[2018-09-09] MEDS ORDERED: AMPICILLIN SOD INJ 1 GM VIAL ONE (19:54)
[2018-09-09] MEDS ORDERED: MAG HYDROX/AL HYDROX/SIMETH SUSP 30 ML UDCUP ONE (20:54)
[2018-09-09] MEDS ORDERED: PROMETHAZINE HCL 25 MG TABLET PO PRN (21:08)
[2018-09-09] MEDS ORDERED: ACETAMINOPHEN 650 MG SUPP.RECT PR PRN (21:08)
[2018-09-09] MEDS ORDERED: GLYCERIN/WITCH HAZEL LEAF 1 EACH MED..PAD TP PRN (21:08)
[2018-09-09] MEDS ORDERED: MEASLES,MUMPS&RUBELLA VACC/PF 0.5 ML VIAL SUBCUT PRN (21:08)
[2018-09-09] MEDS ORDERED: PSEUDOEPHEDRINE HCL 30 MG TABLET PO PRN (21:08)
[2018-09-09] MEDS ORDERED: MAGNESIUM HYDROXIDE SUSP 30 ML UDCUP PO PRN (21:08)
[2018-09-09] MEDS ORDERED: ACETAMINOPHEN WITH CODEINE #3 TABLET PO PRN ×2 (21:08)
[2018-09-09] MEDS ORDERED: NA PHOS,M-B/NA PHOS,DI-BA (ADULT) 133 ML ENEMA PR PRN (21:08)
[2018-09-09] MEDS ORDERED: PROMETHAZINE HCL 25 MG SUPP.RECT PR PRN (21:08)
[2018-09-09] MEDS ORDERED: DIPH/PERTUSS(ACELL)/TETANUS VAC/PF 0.5 ML SYR (>=10YO) IM PRN (21:08)
[2018-09-09] MEDS ORDERED: DIPHENHYDRAMINE HCL 25 MG CAPSULE PO PRN (21:08)
[2018-09-09] MEDS ORDERED: BENZOCAINE/MENTHOL AEROSOL SPRAY 56 ML TOP PRN (21:08)
[2018-09-09] MEDS ORDERED: PROMETHAZINE HCL INJ 25 MG/1 ML VIAL IV PRN (21:08)
[2018-09-09] MEDS ORDERED: DIBUCAINE 1% OINTMENT 28 GM TP PRN (21:08)
[2018-09-09] MEDS ORDERED: ZOLPIDEM TARTRATE 5 MG TABLET PO PRN (21:08)
[2018-09-09] MEDS ORDERED: AMPICILLIN SOD/SULBACTAM 3 GM VIAL IV ONE (22:29)
[2018-09-09] MEDS ORDERED: AMPICILLIN SOD/SULBACTAM 3 GM VIAL ONE (22:31)
[2018-09-09] MEDS ORDERED: IBUPROFEN 800 MG TABLET ONE (22:36)
[2018-09-09] MEDS: IBUPROFEN 800 MG TABLET PO SCH (22:38)
[2018-09-10] MEDS: FAMOTIDINE 20 MG TABLET PO SCH ×3 (00:16→21:44)
--- NOTE | 2018-09-10 01:55 | Delivery Summary ---
Del Sum A-C Datetime Report Generated by CPN: 09/10/2018 01:54 DELIVERY PERSONNEL DELIVERY PERSONNEL: [id number] Delivery Doctor:: Diane Henry MD Labor and Delivery Nurse:: Denise Thompson RN Nursery Nurse:: Pina Owens RN Hole Filler/[employer]: Truman Adame, [employer] MATERNAL INFORMATION Delivery Anesthesia: Epidural Medications After Delivery: Pitocin Drip 20 Units/1000ml NSS Estimated Blood Loss (ml): 200 Maternal Complications: None LABOR SUMMARY EDC: 09/07/2018 00:00 No. Babies in Womb: 1 Attempted: No Labor Anesthesia: Epidural LABOR INFORMATION Reason for Induction: Pre-Eclampsia Onset of Labor: 09/09/2018 10:45 Complete Dilatation: 09/09/2018 19:09 Cervical Ripening Agents: Cervidil Oxytocin: Induction Group B Beta Strep: negative Antibiotics # of Doses: 0 Steroids Given: None Reason Steroids Not Administered: Not Applicable MEMBRANES Membranes Rupture Method: Artificial Rupture of Membranes: 09/09/2018 12:01 Length of Rupture (hr): 8.38 Amniotic Fluid Color: Clear Amniotic Fluid Amount: Small Amniotic Fluid Odor: Normal STAGES OF LABOR Stage 1 hr: 8 Stage 1 min: 24 Stage 2 hr: 1 Stage 2 min: 15 Stage 3 hr: 0 Stage 3 min: 4 Total Time in Labor hr: 9 Total Time in Labor min: 43 VAGINAL DELIVERY Episiotomy: None Laceration #1: Perineal; Vaginal Laceration Extension #1: Second Degree Laceration Repair: Yes Laceration Repair Note: 2-0 chromic Sponge Count Correct: N/A Sharps Count Correct: Yes CSECTION DELIVERY Primary Indication: N/A Secondary Indication: N/A CSection Incidence: N/A Labor: N/A Elective: N/A CSection Incision: N/A BABY A INFORMATION Infant Delivery Date/Time: 09/09/2018 20:24 Method of Delivery: Vaginal Born in Route : No : N/A Forceps: N/A Vacuum Extraction: N/A Shoulder Dystocia : Yes SHOULDER DYSTOCIA BABY A Delivery of Head: 09/09/2018 20:23 Time Head to Delivery : 1.0 1st Intervention to Resolve: Gentle Attempt at Traction, Assisted by Maternal Expulsive Efforts 2nd Intervention to Resolve: McRobert's Maneuver 3rd Intervention to Resolve: Suprapubic Pressure Verify NO Fundal Pressure: No Fundal Pressure Applied Arm Under Symphisis at Del: Left PRESENTATION/POSITION BABY A Presentation: Cephalic Cephalic Presentation: Vertex Vertex Position: Right Occipital Anterior Breech Presentation: N/A PLACENTA INFORMATION BABY A Placenta Delivery Time : 09/09/2018 20:28 Placenta Method of Delivery: Spontaneous Placenta Status: Delivered SCORES BABY A Heart Rate 1 min: >100 bpm Resp Effort 1 min: Good Cry Reflex Irritability 1 min: Cough or Sneeze or Pulls Away Muscle Tone 1 min: Some Flexion of Extremities Color 1 min: Blue/Pale Resuscitation Effort 1 min: Tactile Stimulation SCORE 1 MIN: 7 Heart Rate 5 min: >100 bpm Resp Effort 5 min: Good Cry Reflex Irritability 5 min: Cough or Sneeze or Pulls Away Muscle Tone 5 min: Active Motion Color 5 min: Body [place], Extremities Blue Resuscitation Effort 5 min: Tactile Stimulation SCORE 5 MIN: 9 INFORMATION BABY A Gestational Age at Delivery: 40.2 Gestational Status: Full Term- 39- 40.6 Weeks Outcome : Liveborn Condition : Stable Sex: Female IDENTIFICATION BABY A Verification Date/Time: 09/09/2018 20:37 ID Band Number: [id number] Mother's Name Verified: Yes RN Verifying Infant: S. Lattibjohnir, RNC Additional Verifying Personnel: A. Adame, [employer] WEIGHT/LENGTH BABY A Infant Birthweight (gm): 3791 Weight (lb): 8 Weight (oz): 6 Infant Length (in): 19.50 Length (cm): 49.53 CORD INFORMATION BABY A No. Cord Vessels: 3 Nuchal Cord : N/A Cord Blood Taken: Yes-For Eval (Mom's Blood Type - or O+) Infant Suction: Mouth; Nose ASSESSMENT BABY A Infant Complications: Extended Tachycardia Physical Findings at Delivery: Caput Succedaneum; Molding of the Head Infant Respirations: Appears Normal Skin to Skin: Yes Casserole Preparer/ALS Called : No Infant Care By: Lemuel Owens RN Transferred To: [facility] BABY B INFORMATION : N/A
[2018-09-10] MEDS: IBUPROFEN 800 MG TABLET PO SCH ×3 (05:25→21:44)
[2018-09-10 06:58] LABS: HEMATOCRIT 23.4 % (36.0-47.0); MEAN CORPUSCULAR HEMOGLOBIN 26.7 pg (27.0-33.4); MEAN CORPUSCULAR HGB CONC 33.4 g/dL (32.0-36.0); MEAN CORPUSCULAR VOLUME 80 fl (80-97); PLATELET COUNT 139 10^3/uL (150-450); RED BLOOD COUNT 2.92 10^6/uL (3.72-5.28); RED CELL DISTRIBUTION WIDTH 15.4 % (11.5-14.0); WHITE BLOOD COUNT 17.4 10^3/uL (4.0-10.5)
[2018-09-10 07:10] LABS: HEMOGLOBIN 7.8 g/dL (12.0-15.5)
--- NOTE | 2018-09-10 09:38 | PDOC PROGRESS REPORT ---
Subjective-OB Progress Note for:: 09/10/18 - PP Day #1, s/p IOL for GHTN, doing well, denies headache. O+, rubella Immune. Temp while in labor, afebrile this morning. Physical Exam (OB) Vital Signs: Temp Pulse Resp BP Pulse Ox 97.5 F 100 18 111/65 100 09/10/18 07:53 09/10/18 07:53 09/10/18 07:53 09/10/18 07:53 09/10/18 07:53 Intake & Output 09/09/18 09/10/18 09/11/18 06:59 06:59 06:59 Intake Total 1000 Balance 1000 Weight 72.3 kg - General General Appearance: Appears well, Alert In distress: None - PIH/Pre-Eclampsia Headache: Absent Epigastric Pain: No Visual Changes: No - Lochia Lochia Amount: Small 10-25 ml Lochia Color: Rubra/Red - Abdomen Description: Soft, Round Hernia Present: No Fundal Description: Firm, Midline Fundal Height: u/u - u/2 - Respiratory Respiratory Status: No respiratory distress - Abdominal Inspection: Normal Distension: No distension - Genitourinary Genitourinary Note: voiding - Extremities Upper extremity: Normal inspection Lower extremities: Other - trace edema Objective-Diagnostic Laboratory: 09/10/18 06:36 09/08/18 13:38 09/08/18 09/08/18 09/10/18 12:04 13:38 06:36 WBC 17.4 H RBC 2.92 L Hgb 7.8 L D Hct 23.4 L MCV 80 MCH 26.7 L MCHC 33.4 RDW 15.4 H Plt Count 139 L Creatinine 0.61 Ur 24 Hour Volume 3300 3300 Ur Total Protein 24 Hr 3198 H Assessment and Plan(PN) - Assessment and Plan (1) Gestational hypertension Qualifiers: Trimester: third trimester Qualified Code(s): O13.3 - Gestational [-induced] hypertension without significant proteinuria, third trimester Is this a current diagnosis for this admission?: Yes (2) (spontaneous vaginal delivery) Is this a current diagnosis for this admission?: Yes (3) Anemia, Is this a current diagnosis for this admission?: Yes - Time Spent with Patient Time with patient: Less than 15 minutes Medications reviewed and adjusted accordingly: Yes - Disposition Anticipated Discharge: Home Within: within 24 hours
[2018-09-10] MEDS: AMPICILLIN SODIUM/SULBACTAM NA 3 GM in NORMAL SALINE 100 ML IV SCH ×2 (09:40→17:45)
[2018-09-10] MEDS: PRENATAL VITAMIN W DHA CAPSULE PO SCH (09:41)
[2018-09-10] MEDS: FERROUS SULFATE 325 MG TABLET PO SCH ×2 (09:41→17:46)
[2018-09-10] MEDS: DOCUSATE SODIUM 100 MG CAPSULE PO SCH ×2 (09:41→17:45)
[2018-09-10] MEDS: SENNOSIDES/DOCUSATE 8.6-50 MG 1 EACH TABLET PO SCH (09:58)
[2018-09-10] MEDS ORDERED: SENNOSIDES/DOCUSATE 8.6-50 MG 1 EACH TABLET PO SCH (10:00)
[2018-09-10] MEDS ORDERED: FERROUS SULFATE 325 MG TABLET PO SCH (10:00)
[2018-09-10] MEDS ORDERED: AMPICILLIN SODIUM/SULBACTAM NA 3 GM in NORMAL SALINE 100 ML IV SCH (10:00)
[2018-09-10] MEDS ORDERED: (PENDING PHARMACY ID) (Cholecalciferol (Vitamin D3) [Vitamin D3 1000 Unit Chewable Tablet] PO SCH (10:00)
[2018-09-10] MEDS ORDERED: CHOLECALCIFEROL (D3) 1,000 UNIT TABLET PO SCH (10:00)
[2018-09-10] MEDS ORDERED: HYDROXYZINE PAMOATE 50 MG CAPSULE PO SCH (10:00)
[2018-09-10] MEDS ORDERED: [UNRECOGNIZED DRUG - REMARK] PO SCH (10:00)
[2018-09-11] MEDS: IBUPROFEN 800 MG TABLET PO SCH (06:45)
[2018-09-11] MEDS: SENNOSIDES/DOCUSATE 8.6-50 MG 1 EACH TABLET PO SCH (09:19)
[2018-09-11] MEDS: PRENATAL VITAMIN W DHA CAPSULE PO SCH (09:19)
[2018-09-11] MEDS: DOCUSATE SODIUM 100 MG CAPSULE PO SCH (09:19)
[2018-09-11] MEDS: FAMOTIDINE 20 MG TABLET PO SCH (09:19)
[2018-09-11] MEDS: FERROUS SULFATE 325 MG TABLET PO SCH (09:20)
--- NOTE | 2018-09-11 10:14 | PDOC DISCHARGE SUMMARY ---
Final Diagnosis Discharge Date: 09/11/18 - Final Diagnosis (1) Gestational hypertension Is this a current diagnosis for this admission?: Yes (2) (spontaneous vaginal delivery) Is this a current diagnosis for this admission?: Yes Discharge Data - Discharge Medication Prescriptions: Ibuprofen [Motrin 800 mg Tablet] 800 mg PO Q8HP PRN #60 tablet PRN Reason: Home Medications: Cholecalciferol (Vitamin D3) [Vitamin D3 1000 unit Chewable Tablet] 1,000 unit PO DAILY 08/01/18 Ferrous Sulfate [Iron] 325 mg PO DAILY 08/01/18 Hydroxyzine Pamoate [Vistaril 50 mg Capsule] 50 mg PO DAILY 08/01/18 Pnv No.121/Iron/Folic Acid [ Multivitamin Tablet] 1 each PO DAILY 08/01/18 Ibuprofen [Motrin 800 mg Tablet] 800 mg PO Q8HP PRN #60 tablet 09/11/18 Reason(s) for Admission: Induction of Labor Procedures: NST Intrapartum Procedure(s): Spontaneous Vaginal Delivery, Other Intrapartum Procedure Note: 1 minute shoulder dystocia Complication(s): Laceration-Perineal Laceration-Degree: 2nd - Diagnosis Test Laboratory: Temp Pulse Resp BP Pulse Ox 98.0 F 86 18 131/77 H 100 09/11/18 08:28 09/11/18 08:28 09/11/18 08:28 09/11/18 08:28 09/11/18 08:28 09/08/18 09/08/18 09/10/18 12:07 13:38 06:36 RBC 3.72 2.92 L Hgb 9.9 L 7.8 L D Hct 30.1 L 23.4 L Urine Opiates Screen NEGATIVE - Discharge information/Instructions Discharge Activity: Activity As Tolerated, Pelvic Rest Discharge Diet: Regular Disposition: HOME, SELF-CARE Follow up with: [facility] in: 3, Weeks
[2018-09-11 12:37] VITALS: BP 131/80
== END 2018-09-11 13:42 | disposition home or self-care (01) | DRG 807 ==
LOC: LC 11:59 → LR 16:40 → 2S 09-09 23:10
PROVIDERS: ADMIT Obstetrics & Gynecology; ATTEND Obstetrics & Gynecology
PROC: 10E0XZZ Delivery of Products of Conception, External Approach (ICD-10-PCS; principal; 2018-09-09)
PROC: 0KQM0ZZ Repair Perineum Muscle, Open Approach (ICD-10-PCS; 2018-09-09)
DX: O14.94 Unspecified pre-eclampsia, complicating childbirth (principal); Z37.0 Single live birth; O13.4 Gestational [pregnancy-induced] hypertension without significant proteinuria, complicating childbirth; O76 Abnormality in fetal heart rate and rhythm complicating labor and delivery; O70.1 Second degree perineal laceration during delivery; Z3A.39 39 weeks gestation of pregnancy
CPT/HCPCS: 36415; 80053; 80307; 81001; 82570; 82575; 83615; 84112; 84156; 84550; 85025; 85027; 86592; 86850; 86900; 86901; 94760; J0131; J0290; J0295; J2300; J2550; J2590; J3010; J3490